=== PATIENT | female | born 1950 | race Caucasian/White ===

== ENCOUNTER 2024-05-30 06:21 | Day surgery (SDC) | payer MEDICARE, SELFPAY ==
[2024-05-28 13:56] VITALS: BMI 25.0
[2024-05-30] MEDS: LACTATED RINGERS 1000ML 1,000 ML 50 ML IV (06:42)
[2024-05-30 06:43] VITALS: BP 120/79; PULSE 92; RESP 18; TEMP 36.5; O2SAT 95
--- NOTE | 2024-05-30 07:19 | EXP.ANES.CKL ---
[facility] Disclaimer: The information contained in this section may have been updated after the patient was seen, as this information can be updated by other users. Medical History Osteoarthritis Fracture of right hip requiring operative repair Hip fracture requiring operative repair GERD (gastroesophageal reflux disease) Dysphagia Arthritis Surgical History History of left hip replacement Hx of tonsillectomy Hx of tonsillectomy Family History Other Adverse anesthesia outcome Heart disease Social History Smoking Status: Former smoker alcohol intake: never substance use type: denies use current occupational status: other Travel in the last 8 weeks: None [facility] Anesthesia Checklist Patient Identification Patient Identification: Verbal (Name & ) Structural Data Admitted From: Home Planned Operative Procedure/s: egd,colonoscopy NPO Status Verified Time NPO: 00:00 Airway Assessment Mallampati Score:: Class II C-Spine Mobility Assessed: Yes TMJ Mobility Assessed: Yes Dentition: Good Dentition Neurological Assessment Level of Consciousness: Awake, Alert and Appropriate Anesthesia Plan Anesthesia Risk discussed: Yes Anesthesia Plan: Verified ASA Class: II Anesthesia Type: MAC
[2024-05-30 08:01] VITALS: O2SAT 98
--- NOTE | 2024-05-30 08:02 | EXP.HP ---
History of Present Illness *Admission Date: 05/30/24 *Reason for visit:: Mild recurrent dysphagia and surveillance (personal history of adenoma) *History of present illness: Mrs. Peña is a 74-year-old female who is here for EGD and colonoscopy. She did have esophageal dilation 5 years ago and has had some mild recurrent dysphagia. She had a colonoscopy 5 years ago and had an adenomatous polyp removed. The examination is deemed medically necessary for EGD and colonoscopy. The patient has been seen, interviewed and examined prior to the procedure by both myself and the anesthesia provider. [facility] Disclaimer: The information contained in this section may have been updated after the patient was seen, as this information can be updated by other users. Medical History (Updated 05/30/24 @ 08:03 by Costa Vazquez II, MD) Osteoarthritis Fracture of right hip requiring operative repair Hip fracture requiring operative repair GERD (gastroesophageal reflux disease) Dysphagia Arthritis Surgical History History of left hip replacement Hx of tonsillectomy Hx of tonsillectomy Family History Other Adverse anesthesia outcome Heart disease Social History (Updated 05/30/24 @ 07:20 by Moe Mosqueda CRNA) Smoking Status: Former smoker alcohol intake: never substance use type: denies use current occupational status: other Travel in the last 8 weeks: None Have you lived/traveled outside [place] in past 30 days?: No Contact w/someone who lives/traveled outside US past 30 days?: No Exposure to someone with infectious disease in past 14 days?: No Do you have a fever (greater than 100.4 F or 38 C)?: No Have you tested positive for COVID-19: No Exposed to someone with COVID-19 in past 14 days?: No Do you have a sore throat?: No Do you have a cough?: Yes Do you have any weakness?: No Are you experiencing any nausea/vomitting?: No Do you have any diarrhea?: No Are you experiencing any unusual bleeding?: No Do you have any muscle aches/pain?: No Do you have any abdominal pain?: No Are you experiencing loss of taste or smell?: No Review of Systems Review of Systems Review of systems (narrative): Negative *Cardiovascular Comments: Negative *Gastrointestinal Comments: Negative *Genitourinary Comments: Negative *Musculoskeletal Comments: Negative *Neurologic Comments: Negative Meds Home Medications and Allergies Home Medications ?Medication ?Instructions ?Recorded ?Confirmed ?Type aspirin 81 mg capsule 81 mg PO DAILY 03/20/24 05/30/24 History calcium carbonate 600 mg PO DAILY 03/20/24 05/30/24 History multivitamin 500 cap PO DAILY 03/20/24 05/30/24 History omega 8-hns-jfe-fish oil 1,600 1,600 ml PO DAILY 03/20/24 05/30/24 History mg-500 mg-800 mg/5 mL oral liquid (Fish Oil) omeprazole 20 mg capsule,delayed 20 mg PO DAILY 03/20/24 05/30/24 History release omeprazole 20 mg tablet,delayed 20 mg PO DAILY 03/20/24 05/30/24 History release atorvastatin 40 mg tablet 40 mg PO DAILY 05/28/24 05/30/24 History psyllium husk (sweetleaf) 3.5 gram 1 packet PO DAILY 05/28/24 05/30/24 History oral powder packet (Konsyl Daily Fiber (stevia)) New Prescriptions to Start Prescriptions: Allergies Allergy/AdvReac Type Severity Reaction Status Date / Time No Known Allergies Allergy Verified 05/28/24 13:54 Exam Data for Last 24 hours Vital signs and Labs for Last 24 Hours: Temp Pulse Resp BP Pulse Ox O2 Del Method O2 Flow Rate 97.7 F 92 H 18 120/79 95 Nasal Cannula 5 05/30/24 06:43 05/30/24 06:43 05/30/24 06:43 05/30/24 06:43 05/30/24 06:43 05/30/24 08:01 05/30/24 08:01 I & O for Last 24 hours: Intake & Output 05/27/24 05/28/24 05/29/24 05/30/24 23:59 23:59 23:59 23:59 Weight 150 lb *Routine HEENT Exam Head: Present normocephalic Eye: Present EOMI and PERRL ENT: Present mucous membranes moist *Routine Neck Exam Neck: Present supple *Routine Respiratory Exam Respiratory: Present CTA bilaterally *Routine Cardiovascular Exam Cardiovascular: Present RRR *Routine Abdominal Exam Abdominal: Present soft and normoactive bowel sounds; Absent tenderness *Routine Rectal Exam Rectal:: deferred *Routine Genitalia Exam Genitalia:: deferred *Routine Extremities Exam Extremities: Absent cyanosis, clubbing or edema *Routine Skin Exam Skin: Present warm; Absent rash *Routine Neurological Exam Neurological: Present alert and oriented X3 Assessment and Plan *Assessment and plan (1) History of esophageal stricture: Status: Acute Category: Medical Code(s): Z87.19 - Personal history of other diseases of the digestive system (2) Dysphagia: Status: Acute Category: Medical Code(s): R13.10 - Dysphagia, unspecified (3) Personal history of adenomatous and serrated colon polyps: Status: Acute Category: Medical Code(s): Z86.0101 - Personal history of adenomatous and serrated colon polyps Plan A/P: 1. Prior history of esophageal stricture with recurrent dysphagia and personal history of an adenomatous polyp is the preprocedural diagnosis. The patient will be anesthetized/sedated using MAC sedation. The patient has been seen and examined. Cardiac and lung assessment prior to the examination is stable. Proceed with planned EGD and colonoscopy
--- NOTE | 2024-05-30 08:04 | P.PCN_ITS ---
[facility] Procedure Note Date: 05/30/24 Time: 08:17 Procedure Note:: Upper Endoscopy Procedure Report: Esophagogastroduodenoscopy with cold biopsies and TTS balloon dilation Endoscopost: Costa Vazquez II, MD Referring Physician: Hayley Flynn MD [address] [facility] [address] [place] [address] Date of Procedure: May 30, 2024 Equipment: Olympus GIF 190 standard upper endoscope Sedation: MAC sedation Indications: Mrs. Peña is a 74-year-old female who is here for diagnostic/the rapeutic upper endoscopy. The patient did have esophageal dilation 5 years ago when she had more significant dysphagia and has had marked improvement and reports being 100% improved. However, she has had some mild recurrence of her dysphagia with dry foods and crackers. She reports no abdominal pain, heartburn or reflux. She has had no weight loss. Procedure: Prior to the procedure, a history and physical exam was performed, and patient's medications and allergies were reviewed. The risks, benefits and alternatives of the sedation and procedure were discussed with the patient. All questions were answered and informed consent was obtained. The patient was brought to the procedure room. Patient identification and proposed procedure were verified by the physician and the nurse. The patient was placed in a left lateral decubitus position and the scope was passed under direct vision. Throughout the procedure, the patient's blood pressure, pulse, and oxygen saturations were monitored continuously. The upper GI endoscopy was accomplished without difficulty. The patient tolerated the procedure well. Findings: The scope was passed directly into the upper esophagus and advanced to the third portion of the duodenum. The post bulbar duodenum and duodenal bulb were normal with normal mucosa and conniventes. The scope was withdrawn through a normal duodenal bulb and pylorus into the stomach. There was mild linear gastropathy of the antrum. There were several scattered fundic gland polyps in the body and fundus (PPI effect). One of the polyps was removed via cold biopsy . Upon retroflexion there was a small 2 cm hiatal hernia. The scope was then withdrawn into the esophagus. There was no evidence of reflux esophagitis or De Leon's. There was no fibrous ring. There was some mild squamous corrugation and biopsies were taken from the distal and midesophagus. The entire esophagus was dilated to 60 Pashto/20 mm with a TTS hydrostatic balloon. There was mild resistance at the cricopharyngeus. The remainder of the esophageal mucosa was normal. Impression: 1. Mild cricopharyngeal spasm 2. Nonerosive GERD with mild esophageal dysmotility and small 2 cm hiatal hernia 3. Gastric fundic polyps 4. Mild linear reactive gastropathy of antrum Plan: I will follow-up the biopsies. The patient had clinical improvement with dilation previously and should improve presently. I will proceed with surveillance colonoscopy.
--- NOTE | 2024-05-30 08:18 | HMH.PROCNOTE ---
[facility] Procedure Note Date: 05/30/24 Time: 08:40 Procedure Note:: Colonoscopy Procedure Report: Colonoscopy with cold snare polypectomy Endoscopist: Costa Vazquez II, MD Referring physician: Hayley Flynn MD [address] [place] [address] [address] [place] [address] Date of Procedure: May 30, 2024 Equipment: Olympus 190 variable stiffness pediatric colonoscope Sedation: MAC sedation Indication: Mrs. Peña is a 74-year-old female who is here for follow-up surveillance colonoscopy. Her last colonoscopy was 5 years ago at which time a single polyp (tubular adenoma) was removed. She reports no abdominal pain, weight loss, change in her bowel habits or rectal bleeding. She reports no family history of colon cancer. She does take the fiber bowel regimen (combined MiraLAX plus Konsyl) daily which has helped to regulate bowel function. Procedure: Prior to the procedure, a history and physical exam was performed, and patient's medications and allergies were reviewed. The risks, benefits and alternatives of the sedation and procedure were discussed with the patient. All questions were answered and informed consent was obtained. The patient was brought to the procedure room. Patient identification and proposed procedure were verified by the physician and the nurse. The patient was placed in a left lateral decubitus position and the scope was passed under direct vision. Throughout the procedure, the patient's blood pressure, pulse, and oxygen saturations were monitored continuously. The colonoscopy was accomplished without difficulty. The patient tolerated the procedure well. Findings: On digital rectal examination there was normal rectal tone. There were no external hemorrhoids. The colonoscope was introduced through the anal canal to the rectum and advanced to the cecum. The ileocecal valve and appendiceal orifice were identified. The scope was advanced a short distance into the ileum which appeared grossly normal. The scope was then withdrawn into the colon. The cecum, ascending and transverse colon and mucosa were grossly normal. There were extensively scattered [place] diverticuli throughout the descending and sigmoid colon (LEFT colon). There were 4 diminutive polyps (sigmoid x 1 (3 to 4 mm) and rectosigmoid/rectum x 3 (3 to 4 mm)). These were all removed via cold snare polypectomy. The rectum itself was normal. Upon retroflexion within the rectum there were grade 2 internal hemorrhoids. The preparation was excellent throughout with [place] Preparation Score of 9. The cecal time was 14 minutes. Impression: 1. Diminutive colonic polyps x 4?rule out hyperplastic polyps 2. Extensive left-sided diverticulosis 3. Grade 2 internal hemorrhoids Plan: I will follow-up the polyp histology and determine whether further surveillance is warranted. I would encourage continuation of the fiber bowel regimen (combined MiraLAX plus Konsyl) on a long-term daily maintenance basis.
[2024-05-30 08:44] VITALS: BP 88/54; PULSE 65; RESP 18; TEMP 36.2; O2SAT 97
[2024-05-30 08:54] VITALS: BP 116/61; PULSE 65; RESP 18; TEMP 36.2; O2SAT 97
[2024-05-30 09:04] VITALS: BP 100/73; PULSE 67; RESP 18; O2SAT 99
[2024-05-30 09:38] VITALS: BP 128/68; PULSE 66; RESP 18; O2SAT 98
== END 2024-05-30 09:38 | disposition home or self-care (01) ==
PROVIDERS: PCP Internal Medicine; Visit Provider Internal Medicine Gastroenterology
PROC: 0DJ08ZZ Inspection of Upper Intestinal Tract, Via Natural or Artificial Opening Endoscopic (ICD-10-PCS; CPT 45378; principal; 2024-05-30 08:00)
DX: R13.10 Dysphagia, unspecified (principal); Z87.19 Personal history of other diseases of the digestive system; Z86.0101 Personal history of adenomatous and serrated colon polyps; J39.2 Other diseases of pharynx; K21.9 Gastro-esophageal reflux disease without esophagitis; K44.9 Diaphragmatic hernia without obstruction or gangrene; K31.9 Disease of stomach and duodenum, unspecified; K31.7 Polyp of stomach and duodenum; K63.5 Polyp of colon; K57.30 Diverticulosis of large intestine without perforation or abscess without bleeding; K64.1 Second degree hemorrhoids
CPT/HCPCS: 43239; 43249; 45385; C1726; J2704; J7120